=== PATIENT | male | born 1995 | race Caucasian/White ===

== ENCOUNTER 2025-08-27 13:25 | Day surgery (SDC) | payer MEDICARE, MEDICAID ==
[~2025-08-27] VITALS: Ht 154.9 cm; Wt 106.2 kg
[~2025-08-27 13:25] MED LIST: CETI-24 PO; LISI20TA33 PO; NICO1DIS12; OMEP-173 PO; VENTAER
[2025-08-27] MEDS ORDERED: LIDOCAINE 2% 100 MG/5 ML SDV (FOR ANES.) As Ordered ONE (13:43)
[2025-08-27] MEDS ORDERED: MIDAZOLAM INJ 2 MG/2 ML VIAL As Ordered ONE (13:43)
[2025-08-27] MEDS ORDERED: ROCURONIUM BROMIDE 50MG/5ML VIAL As Ordered ONE (13:43)
[2025-08-27] MEDS ORDERED: KETOROLAC 30 MG/ML 1 ML VIAL As Ordered ONE (13:44)
[2025-08-27] MEDS ORDERED: ONDANSETRON 4MG 2ML VIAL As Ordered ONE (13:44)
[2025-08-27] MEDS ORDERED: dexAMETHasone 4 MG/ML 1 ML VIAL As Ordered ONE (13:44)
[2025-08-27] MEDS ORDERED: ACETAMINOPHEN 1000MG/100ML IV BAG As Ordered ONE (13:45)
[2025-08-27] MEDS ORDERED: LR 1,000 ML IV SCH ×2 (13:50→16:45)
[2025-08-27] MEDS: ceFAZolin SOD 2 GM IV ONCE IV ONE (15:15)
[2025-08-27] MEDS: HEPARIN SOD 5000 UNITS/ML 1 ML VIAL/SYRINGE SQ ONE (15:23)
[2025-08-27] MEDS ORDERED: SUGAMMADEX SODIUM 200 MG/2 ML VIAL As Ordered ONE (15:44)
[2025-08-27] MEDS ORDERED: PHENYLephrine 500MCG 5ML (100MCG/ML) SYRINGE As Ordered ONE (15:44)
[2025-08-27] MEDS ORDERED: HYDROMORPHONE HCL 0.5 MG/0.5 ML SYRINGE IV PRN (16:45)
[2025-08-27] MEDS ORDERED: ONDANSETRON 4MG 2ML VIAL IV PRN (16:45)
[2025-08-27 18:02] VITALS: BP 138/73; TEMP 97.8; O2SAT 98
== END 2025-08-27 18:05 | disposition home or self-care (01) ==
LOC: M SDC 13:25
PROVIDERS: ATTEND Surgery
DX: K40.90 Unilateral inguinal hernia, without obstruction or gangrene, not specified as recurrent (principal); J30.2 Other seasonal allergic rhinitis; I10 Essential (primary) hypertension; K76.0 Fatty (change of) liver, not elsewhere classified; K21.9 Gastro-esophageal reflux disease without esophagitis; J45.909 Unspecified asthma, uncomplicated; Z79.51 Long term (current) use of inhaled steroids; Z79.899 Other long term (current) drug therapy; F17.220 Nicotine dependence, chewing tobacco, uncomplicated
CPT/HCPCS: 49650; C1781; J0131; J0665; J0688; J1100; J1885; J2250; J2371; J2405; J3010; S2900